=== PATIENT | female | born 1990 | race Caucasian/White ===

== ENCOUNTER → 2017-11-21 14:23 | Outpatient (CLI) | payer OTHER, SELFPAY ==
[2017-11-24 14:26] LABS: HPV Reflexed? NOT INDICATED
== END ==
PROVIDERS: Visit Provider Obstetrics & Gynecology
DX: Z12.4 Encounter for screening for malignant neoplasm of cervix (principal)
CPT/HCPCS: 88175; G0145

== ENCOUNTER → 2020-07-16 | Outpatient (CLI) | payer OTHER, SELFPAY ==
[2020-07-21 12:38] LABS: HPV Reflexed? NOT INDICATED
== END | disposition home or self-care (01) ==
LOC: LABSPEC 16:08
PROVIDERS: Visit Provider Student in an Organized Health Care Education/Training Program
DX: Z12.4 Encounter for screening for malignant neoplasm of cervix (principal)
CPT/HCPCS: 88175; G0145

== ENCOUNTER 2020-08-23 21:30 | Emergency (ER) | payer OTHER, SELFPAY ==
[2020-08-23 21:31] VITALS: BP 155/75; PULSE 99; RESP 18; TEMP 36.1; O2SAT 97; BMI 28.3
--- NOTE | 2020-08-23 21:45 | RAD_ITS ---
HISTORY: foot pain/injury Technique: Left foot AP, lateral, and oblique radiographs Comparison: None available Findings: No acute fracture or dislocation. Osseous mineralization, joint spaces, and alignment otherwise appear preserved as imaged. No focal abnormality or radiopaque foreign body is seen in the surrounding soft tissues. RAD/Foot min 3 Views IMPRESSION: No acute osseous abnormality identified in the foot. at 2230 Reported and signed by: Todd Hill MD Electronically Signed: Todd Hill MD at 22:29 EDT Tel , Service support ,
--- NOTE | 2020-08-23 22:00 | RAD_ITS ---
HISTORY: ankle pain/injury COMPARISON: None FINDINGS: # of images incl. paperwork: 3 XR Ankle Min 3 Views : No fracture or osseous abnormality. The ankle mortise is intact. Soft tissue swelling is not seen. RAD/Ankle min 3 Views IMPRESSION: Normal Left ankle at 2230 Reported and signed by: Todd Hill MD Electronically Signed: Todd Hill MD at 22:29 EDT Tel , Service support ,
--- NOTE | 2020-08-23 22:07 | ED.VIS.LOWEX ---
HPI History of Present Illness Chief Complaint: Lower Extremity Injury Informant: patient Narrative Narrative: 29-year-old female states that she was attempting to lift and carry a log when she stated inversion injury to left foot and ankle. She states she had some crunching. She states that she waited a little bit thinking it might get better. However continues to hurt when she ambulates. She states that she ties her shoes tight and feels better. PFSH PFSH no medical history Home Medications NK 08/23/20 [History Last Taken Unknown] Allergy/AdvReac Type Severity Reaction Status Date / Time No Known Allergies Allergy Verified 08/23/20 21:33 no surgical history Social History (Updated 08/23/20 @ 22:[address] Delmar Fraga, DO) Smoking Status: Never smoker substance use type: does not use ROS ROS ED Constitutional Constitutional ED: Denies chills or weight loss Eyes Eyes: Denies change in vision or diplopia ENT ENT ED: Denies ear pain, rhinorrhea or sore throat Cardiovascular Cardiovascular: Denies chest pain, orthopnea, palpitations or racing heartbeat Respiratory/Chest Respiratory/Chest: Denies cough, dyspnea or orthopnea Gastrointestinal Gastrointestinal: Denies abdominal pain, diarrhea, nausea or vomiting Genitourinary Genitourinary ED: Denies dysuria, hematuria or urinary frequency Musculoskeletal Musculoskeletal: Reports other Details: See history of present illness ; Denies arthralgias or myalgias Integumentary Denies abscess or rash Neurologic Neurologic: Denies headache(s) or weakness Psychiatric Psychiatric: Denies anxiety, depression, suicidal ideation or suicidal thoughts Endocrine Endocrinology: Denies polydipsia, polyphagia or polyuria Allergic/Immunologic Allergic/Immunologic ED: Denies mouth swelling, tongue swelling or urticaria EXAM Physical Exam Const Vital Signs: 08/23/20 21:31 Temperature 97.0 F L Temperature Source Temporal Pulse Rate 99 Respiratory Rate 18 Blood Pressure 155/75 H Blood Pressure Mean 101 Pulse Ox 97 Oxygen Delivery Method Room Air Positive well nourished and well developed General Appearance ED: well developed HEENT Reports normocephalic, head/scalp atraumatic and moist mucous membranes Eyes PERRL and EOMs intact bilaterally Neck no lymphadenopathy, supple and no JVD Resp normal respiratory effort and clear to auscultation bilaterally Cardio regular rate, regular rhythm and no murmurs GI normal to inspection, nondistended, normoactive bowel sounds and non-tender Palpation: soft Back/Spine no CVA tenderness and normal ROM Extremity Extremity Narrative: Patient has mild tenderness to patient over the posterior aspect of the lateral malleolus of the left ankle. There is no fifth metatarsal pain. There is no fibular head pain. No medial or posterior malleoli or pain. There is no significant swelling or ecchymosis noted. Neurovascular intact distal General Extremety ED: Negative for edema General Extremity: Negative for edema Neuro oriented x3 and CN's II-XII intact bilaterally Sensorium / Orientation: alert Motor Exam: strength 5/5 throughout Psych mental status grossly normal Mood & Affect: Negative for depressed or tearful Skin no rashes or lesions noted and no wounds MDM MDM MDM Narrative Medical decision making narrative: My interpretation of the plain films of the left foot and ankle is no acute fracture. Patient will Dany wrap the ankle. Ice rest Motrin as needed for pain. Follow-up with primary care 10 to 14 days if not improved Radiography Diagnostic Testing: Radiology Impression Foot X-Ray 08/23/20 21:45 IMPRESSION: No acute osseous abnormality identified in the foot. at 2230 Reported and signed by: Todd Hill MD Electronically Signed: Todd Hill MD at 22:29 EDT Tel , Service support , Ankle X-Ray 08/23/20 22:00 IMPRESSION: Normal Left ankle at 2230 Reported and signed by: Todd Hill MD Electronically Signed: Todd Hill MD at 22:29 EDT Tel , Service support , Discharge Plan Triage Chief Complaint: Lower Extremity Injury ED Provider: Delmar Fraga Dx/Rx/DC Orders Clinical Impression: Left ankle sprain Instructions: ED Ankle Sprain (Adult) Prescriptions: No Action NK RF: 0 Primary Care Provider: Care Physician,No Primary Referrals: Trino Dennison MD [STAFF PHYSICIAN] - 10-14 Days if not better Care Physician,No Primary [Primary Care Provider] - Disposition Disposition: Home, self care Discharge Date/Time: 08/23/20 22:17
== END 2020-08-23 22:17 | disposition home or self-care (01) ==
PROVIDERS: Emergency Provider Emergency Medicine
DX: S93.402A Sprain of unspecified ligament of left ankle, initial encounter (principal); X50.1XXA Overexertion from prolonged static or awkward postures, initial encounter; Y93.89 Activity, other specified; Y92.89 Other specified places as the place of occurrence of the external cause; Y99.8 Other external cause status
CPT/HCPCS: 73610; 73630; 99282